=== PATIENT | male | born 1950 | race Caucasian/White ===

== ENCOUNTER 2021-03-09 17:00 | Emergency (ER) | payer OTHER ==
[~2021-03-09] VITALS: Ht 177.8 cm; Wt 97.5 kg
[2021-03-09] MEDS ORDERED: ASA81BEC PO (17:13)
[2021-03-09] MEDS ORDERED: ZETIA10 MG PO (17:13)
[2021-03-09] MEDS ORDERED: NIFEDIPINE10 MG PO (17:13)
[2021-03-09] MEDS ORDERED: DIFLUCAN150 MG PO (18:03)
[2021-03-09] MEDS ORDERED: TRIAMCINOLONE A80 G2 TOP (18:03)
[2021-03-09 18:10] VITALS: BP 147/73
== END 2021-03-09 18:11 | disposition home or self-care (01) ==
LOC: M.ERS 17:00
DX: R21 Rash and other nonspecific skin eruption (principal); L29.9 Pruritus, unspecified; I10 Essential (primary) hypertension; Z88.1 Allergy status to other antibiotic agents; Z79.899 Other long term (current) drug therapy